=== PATIENT | female | born 1970 | race African-American/Black ===

== ENCOUNTER 2016-04-08 12:52 | Inpatient (IN) | payer MEDICAID ==
[~2016-04-08] VITALS: Ht 162.6 cm; Wt 156.7 kg
[~2016-04-08 12:52] MED LIST: MVITFE PO; VENL-67 PO
[2016-04-08] MEDS ORDERED: ACETAMINOPHEN 325 MG TABLET PO PRN (15:45)
[2016-04-08] MEDS ORDERED: ZOLPIDEM TARTRATE 10 MG TABLET PO PRN (15:45)
[2016-04-08] MEDS ORDERED: QUEtiapine FUMARATE 100 MG TABLET PO PRN (15:45)
[2016-04-08] MEDS ORDERED: MAGNESIUM HYDROXIDE SUSPENSION 30 ML UDCUP PO PRN (15:45)
[2016-04-08] MEDS ORDERED: LORazepam 2 MG TABLET PO PRN (15:45)
[2016-04-08] MEDS ORDERED: PROMETHAZINE HCL 25 MG TABLET PO PRN (15:45)
[2016-04-08] MEDS ORDERED: LOPERAMIDE HCL 2 MG CAPSULE PO PRN (15:45)
[2016-04-08] MEDS ORDERED: GuaiFENesin/D-METHORPHAN [SUGAR-FREE] 200-20MG/10 ML SYRUP UDCUP PO PRN (15:45)
[2016-04-08] MEDS ORDERED: TUBERCULIN, PURIFIED PROTEIN DERIVATIVE 5 TU/0.1 ML SYG ID ONE (15:45)
[2016-04-08] MEDS ORDERED: HydrOXYzine PAMOATE 50 MG CAPSULE PO PRN (15:45)
[2016-04-08] MEDS ORDERED: MAG HYDROX/AL HYDROX/SIMETH ES 30 ML SUSPENSION UDCUP PO PRN (15:45)
[2016-04-08] MEDS ORDERED: CITA10TA68 PO (15:56)
[2016-04-08 16:26] VITALS: BP 133/78
[2016-04-08] MEDS ORDERED: -PHARMACY VACCINE NOTE- MISC ONE ×2 (16:45)
[2016-04-08] MEDS: THIAMINE HCL 100 MG TABLET PO SCH (18:27)
[2016-04-08 18:36] VITALS: BP 126/65
[2016-04-08] MEDS: PRAZOSIN HCL 1 MG CAPSULE PO SCH (20:13)
[2016-04-08 20:14] VITALS: BP 122/85
[2016-04-09 06:02] VITALS: BP 124/80
[2016-04-09 08:19] LABS: BASOPHILS % (AUTO) 0.4 % (0.0-2.0); EOSINOPHILS % (AUTO) 4.4 % (1.0-6.0); HEMATOCRIT 36.3 % (36-46); HEMOGLOBIN 11.6 g/dL (12.0-16.0); LYMPHOCYTES # (AUTO) 2.7 K/uL (1.0-4.8); LYMPHOCYTES % (AUTO) 39.8 % (22.0-44.0); MEAN CORPUSCULAR HEMOGLOBIN 23.9 pg (26.0-34.0); MEAN CORPUSCULAR HGB CONC 31.9 G/dL (31.0-37.0); MEAN CORPUSCULAR VOLUME 75 fL (80-100); MONOCYTES # (AUTO) 0.6 K/uL (0.1-1.0); MONOCYTES % (AUTO) 8.8 % (2.0-9.0); NEUTROPHILS # (AUTO) 3.2 K/uL (1.8-7.7); NEUTROPHILS % (AUTO) 46.6 % (40.0-70.0); PLATELET COUNT (AUTO) 384 K/uL (150-450); RED BLOOD CELL COUNT(AUTO) 4.83 MIL/uL (4.00-5.20); RED CELL DISTRIBUTION WIDTH 16.2 % (11.5-14.5); WHITE BLOOD COUNT (AUTO) 6.8 K/uL (4.5-11.0)
[2016-04-09 08:31] VITALS: BP 118/75
[2016-04-09 08:33] LABS: HEMOGLOBIN A1C 5.8 % (4.5-6.2)
[2016-04-09] MEDS: DULoxetine HCL 20 MG CAPSULE PO SCH (08:35)
[2016-04-09] MEDS: THIAMINE HCL 100 MG TABLET PO SCH ×2 (08:36→16:09)
[2016-04-09] MEDS: GABAPENTIN 300 MG CAPSULE PO SCH ×3 (08:36→16:09)
[2016-04-09] MEDS: MULTIVITAMINS WITH MINERALS, THERAPEUTIC TABLET PO SCH (08:36)
[2016-04-09] MEDS: FOLIC ACID 1 MG TABLET PO SCH (08:36)
[2016-04-09 08:55] LABS: RBC MORPHOLOGY COMMENT ABNORMAL RBC MORPH
[2016-04-09] MEDS ORDERED: FLUoxetine HCL 20 MG CAPSULE PO SCH (09:00)
[2016-04-09 09:08] LABS: ALANINE AMINOTRANSFERASE 15 U/L (12-78); ALBUMIN 2.5 g/dL (3.4-5.0); ANION GAP 6 mmol/L (8-16); ASPARTATE AMINOTRANSFERASE 18 U/L (15-37); BILIRUBIN,TOTAL 0.2 mg/dL (0.1-1.0); CALCIUM, TOTAL 8.7 mg/dL (8.8-10.5); CARBON DIOXIDE 28 mmol/L (22-29); CHLORIDE 105 mmol/L (98-107); CHOL/HDL RATIO 2.9 (3.9-5.7); CREATININE 0.88 mg/dL (0.60-1.30); GLOMERULAR FILTR. RATE CALC > 60 mL/min (>60); POTASSIUM 4.1 mmol/L (3.5-5.1); SODIUM SERUM 139 mmol/L (136-145); THYROID STIMULATING HORMONE 2.36 uIU/mL (0.36-3.74); TOTAL PROTEIN, SERUM 7.2 g/dL (6.4-8.2); UREA NITROGEN, BLOOD 17 mg/dL (7-18)
[2016-04-09 16:25] VITALS: BP 127/87
[2016-04-09] MEDS: ASENAPINE 5 MG SUBLINGUAL TABLET SL SCH (20:16)
[2016-04-09] MEDS: PRAZOSIN HCL 1 MG CAPSULE PO SCH (20:16)
[2016-04-10 04:26] VITALS: BP 131/85
[2016-04-10] MEDS: THIAMINE HCL 100 MG TABLET PO SCH ×2 (08:33→16:43)
[2016-04-10] MEDS: GABAPENTIN 300 MG CAPSULE PO SCH ×3 (08:33→16:43)
[2016-04-10] MEDS: MULTIVITAMINS WITH MINERALS, THERAPEUTIC TABLET PO SCH (08:33)
[2016-04-10] MEDS: FOLIC ACID 1 MG TABLET PO SCH (08:33)
[2016-04-10] MEDS: DULoxetine HCL 20 MG CAPSULE PO SCH (08:33)
[2016-04-10 08:37] VITALS: BP 120/64
[2016-04-10 16:09] VITALS: BP 126/77
[2016-04-10] MEDS: PRAZOSIN HCL 1 MG CAPSULE PO SCH (20:35)
[2016-04-10] MEDS: ASENAPINE 5 MG SUBLINGUAL TABLET SL SCH (20:35)
[2016-04-11 00:20] VITALS: BP 118/72
[2016-04-11 08:29] VITALS: BP 121/78
[2016-04-11] MEDS ORDERED: DULoxetine HCL 30 MG CAPSULE PO SCH (09:00)
[2016-04-11] MEDS ORDERED: DULoxetine HCL 20 MG CAPSULE PO SCH (09:00)
[2016-04-11] MEDS: FOLIC ACID 1 MG TABLET PO SCH (09:34)
[2016-04-11] MEDS: THIAMINE HCL 100 MG TABLET PO SCH ×2 (09:34→16:54)
[2016-04-11] MEDS: GABAPENTIN 300 MG CAPSULE PO SCH ×3 (09:34→16:54)
[2016-04-11] MEDS: MULTIVITAMINS WITH MINERALS, THERAPEUTIC TABLET PO SCH (09:34)
[2016-04-11] MEDS ORDERED: GABA-531 PO (14:53)
[2016-04-11] MEDS ORDERED: ASEN5TAB6 SL (14:53)
[2016-04-11] MEDS ORDERED: DULO20CA30 PO (14:53)
[2016-04-11] MEDS ORDERED: PRAZ1 PO (14:53)
[2016-04-11 21:00] VITALS: BP 131/76
[2016-04-11] MEDS: PRAZOSIN HCL 1 MG CAPSULE PO SCH (21:10)
[2016-04-11] MEDS: ASENAPINE 5 MG SUBLINGUAL TABLET SL SCH (21:10)
[2016-04-12 08:18] VITALS: BP 123/73
[2016-04-12] MEDS ORDERED: DULoxetine HCL 60 MG CAPSULE PO SCH (09:00)
[2016-04-12] MEDS: FOLIC ACID 1 MG TABLET PO SCH (09:13)
[2016-04-12] MEDS: THIAMINE HCL 100 MG TABLET PO SCH (09:13)
[2016-04-12] MEDS: GABAPENTIN 300 MG CAPSULE PO SCH ×2 (09:13→12:52)
[2016-04-12] MEDS: MULTIVITAMINS WITH MINERALS, THERAPEUTIC TABLET PO SCH (09:13)
[2016-04-12] MEDS ORDERED: DULO60CA44 PO (10:38)
[2016-04-12] MEDS ORDERED: GABA-531 PO (10:38)
[2016-04-12] MEDS ORDERED: ASEN5TAB6 SL (10:38)
[2016-04-12] MEDS ORDERED: PRAZ1 PO (10:38)
== END 2016-04-12 14:18 | disposition home or self-care (01) | DRG 751 ==
LOC: B2S 16:06
PROVIDERS: ADMIT Psychiatry & Neurology Psychiatry; ATTEND Psychiatry & Neurology Psychiatry
DX: F33.9 Major depressive disorder, recurrent, unspecified (principal); R45.851 Suicidal ideations; Z68.43 Body mass index [BMI] 50.0-59.9, adult; I10 Essential (primary) hypertension; E66.01 Morbid (severe) obesity due to excess calories; F43.10 Post-traumatic stress disorder, unspecified; M79.7 Fibromyalgia; G89.4 Chronic pain syndrome; M19.90 Unspecified osteoarthritis, unspecified site; D64.9 Anemia, unspecified; Z59.0 Homelessness; Z79.899 Other long term (current) drug therapy; Z91.19 Patient's noncompliance with other medical treatment and regimen; Z87.898 Personal history of other specified conditions
CPT/HCPCS: 83036; 84439; 84443; 86592; 93005

== ENCOUNTER 2016-05-27 22:36 | Inpatient (IN) | payer MEDICAID, OTHER ==
[~2016-05-27] VITALS: Ht 175.3 cm; Wt 154.4 kg
[~2016-05-27 22:36] MED LIST changes: +ASEN5TAB6 SL; +DULO20CA30 PO; +GABA-531 PO; -MVITFE PO; +PRAZ1 PO; -VENL-67 PO
[2016-05-27] MEDS ORDERED: CHARCOAL/SORBITOL 50 GM/240 ML SUSPENSION PO ONE (23:00)
[2016-05-27 23:10] LABS: BASOPHILS # (AUTO) 0.04 K/uL (0.00-0.20); BASOPHILS % (AUTO) 0.5 % (0.0-2.0); EOSINOPHILS # (AUTO) 0.37 K/uL (0.00-0.70); EOSINOPHILS % (AUTO) 4.84 % (1.0-6.0); HEMATOCRIT 34.4 % (36-46); HEMOGLOBIN 11.1 g/dL (12.0-16.0); LYMPHOCYTES # (AUTO) 2.6 K/uL (1.0-4.8); LYMPHOCYTES % (AUTO) 33.1 % (22.0-44.0); MEAN CORPUSCULAR HEMOGLOBIN 23.4 pg (26.0-34.0); MEAN CORPUSCULAR HGB CONC 32.2 G/dL (31.0-37.0); MEAN CORPUSCULAR VOLUME 73 fL (80-100); MONOCYTES # (AUTO) 0.6 K/uL (0.1-1.0); MONOCYTES % (AUTO) 7.8 % (2.0-9.0); NEUTROPHILS # (AUTO) 4.2 K/uL (1.8-7.7); NEUTROPHILS % (AUTO) 53.7 % (40.0-70.0); PLATELET COUNT (AUTO) 374 K/uL (150-450); RED BLOOD CELL COUNT(AUTO) 4.73 MIL/uL (4.00-5.20); RED CELL DISTRIBUTION WIDTH 18.2 % (11.5-14.5); WHITE BLOOD COUNT (AUTO) 7.7 K/uL (4.5-11.0)
[2016-05-27 23:17] LABS: ANION GAP 9 mmol/L (8-16); CARBON DIOXIDE 29 mmol/L (22-29); CHLORIDE 104 mmol/L (98-107); GLOMERULAR FILTR. RATE CALC > 60 mL/min (>60); POTASSIUM 3.6 mmol/L (3.5-5.1); SODIUM SERUM 142 mmol/L (136-145); UREA NITROGEN, BLOOD 12 mg/dL (7-18)
[2016-05-27 23:18] LABS: RBC MORPHOLOGY COMMENT ABNORMAL RBC MORPH
[2016-05-27 23:22] LABS: ACETAMINOPHEN 22 mcg/mL (10-30); ALANINE AMINOTRANSFERASE 15 U/L (12-78); ASPARTATE AMINOTRANSFERASE 16 U/L (15-37); BILIRUBIN,TOTAL 0.2 mg/dL (0.1-1.0); TOTAL PROTEIN, SERUM 7.7 g/dL (6.4-8.2)
[2016-05-27 23:41] LABS: SALICYLATE 2.9 mg/dL (2.8-20.0)
[2016-05-27] MEDS ORDERED: PERMETHRIN 5% 60 GM CREAM TP ONE (23:45)
[2016-05-28] MEDS ORDERED: ZOLPIDEM TARTRATE 10 MG TABLET PO PRN (00:30)
[2016-05-28] MEDS ORDERED: LORazepam 2 MG TABLET PO PRN (00:30)
[2016-05-28] MEDS ORDERED: OLANZapine 5 MG RAPDIS TABLET PO PRN (00:30)
[2016-05-28 01:28] LABS: APPEARANCE,URINE CLOUDY (CLEAR); GLUCOSE, URINE (UA) NEGATIVE (NEGATIVE); KETONES,URINE NEGATIVE (NEGATIVE); LEUKOCYTE ESTERASE ,URINE NEGATIVE (NEGATIVE); OCCULT BLOOD,URINE NEGATIVE (NEGATIVE); PH,URINE 5.5 (5.0-8.0); PROTEIN,URINE TRACE (NEGATIVE)
[2016-05-28 01:29] LABS: ADD UA MICROSCOPIC NO
[2016-05-28 03:28] VITALS: BP 143/81
[2016-05-28] MEDS ORDERED: -PHARMACY VACCINE NOTE- MISC ONE ×2 (04:00)
[2016-05-28 08:30] VITALS: BP 127/75
[2016-05-28] MEDS ORDERED: MAGNESIUM HYDROXIDE SUSPENSION 30 ML UDCUP PO PRN (11:45)
[2016-05-28] MEDS ORDERED: HydrOXYzine PAMOATE 50 MG CAPSULE PO PRN (11:45)
[2016-05-28] MEDS ORDERED: TUBERCULIN, PURIFIED PROTEIN DERIVATIVE 5 TU/0.1 ML SYG ID ONE (11:45)
[2016-05-28] MEDS ORDERED: MAG HYDROX/AL HYDROX/SIMETH ES 30 ML SUSPENSION UDCUP PO PRN (11:45)
[2016-05-28] MEDS ORDERED: GuaiFENesin/D-METHORPHAN [SUGAR-FREE] 200-20MG/10 ML SYRUP UDCUP PO PRN (11:45)
[2016-05-28] MEDS ORDERED: ACETAMINOPHEN 325 MG TABLET PO PRN (11:45)
[2016-05-28] MEDS ORDERED: PROMETHAZINE HCL 25 MG TABLET PO PRN (11:45)
[2016-05-28] MEDS ORDERED: LOPERAMIDE HCL 2 MG CAPSULE PO PRN (11:45)
[2016-05-28] MEDS: GABAPENTIN 300 MG CAPSULE PO SCH ×2 (13:30→16:17)
[2016-05-28] MEDS: THIAMINE HCL 100 MG TABLET PO SCH (16:17)
[2016-05-28 19:48] VITALS: BP 107/74
[2016-05-28] MEDS: PRAZOSIN HCL 2 MG CAPSULE PO SCH (20:36)
[2016-05-28] MEDS: ASENAPINE 5 MG SUBLINGUAL TABLET SL SCH (20:36)
[2016-05-28 20:48] VITALS: BP 128/86
[2016-05-29 08:30] VITALS: BP 165/102
[2016-05-29] MEDS ORDERED: DULoxetine HCL 20 MG CAPSULE PO SCH (09:00)
[2016-05-29] MEDS: THIAMINE HCL 100 MG TABLET PO SCH ×2 (09:12→17:45)
[2016-05-29] MEDS: FOLIC ACID 1 MG TABLET PO SCH (09:12)
[2016-05-29] MEDS: GABAPENTIN 300 MG CAPSULE PO SCH ×3 (09:12→17:45)
[2016-05-29] MEDS: MULTIVITAMINS WITH MINERALS, THERAPEUTIC TABLET PO SCH (09:12)
[2016-05-29] MEDS: DULoxetine HCL 30 MG CAPSULE PO SCH (09:12)
[2016-05-29] MEDS ORDERED: POTASSIUM CHLORIDE 20 MEQ ER TABLET PO ONE (19:00)
[2016-05-29 19:01] VITALS: BP 121/76
[2016-05-29] MEDS: PRAZOSIN HCL 2 MG CAPSULE PO SCH (21:34)
[2016-05-29] MEDS: ASENAPINE 5 MG SUBLINGUAL TABLET SL SCH (21:34)
[2016-05-30 08:00] VITALS: BP 128/88
[2016-05-30] MEDS: THIAMINE HCL 100 MG TABLET PO SCH ×2 (09:59→17:20)
[2016-05-30] MEDS: GABAPENTIN 300 MG CAPSULE PO SCH (09:59)
[2016-05-30] MEDS: FOLIC ACID 1 MG TABLET PO SCH (09:59)
[2016-05-30] MEDS: DULoxetine HCL 30 MG CAPSULE PO SCH (09:59)
[2016-05-30] MEDS: HYDROCHLOROTHIAZIDE 25 MG TABLET PO SCH (09:59)
[2016-05-30] MEDS: MULTIVITAMINS WITH MINERALS, THERAPEUTIC TABLET PO SCH (10:00)
[2016-05-30] MEDS: GABAPENTIN 400 MG CAPSULE PO SCH ×2 (13:48→17:20)
[2016-05-30 17:15] VITALS: BP 136/79
[2016-05-30] MEDS: ASENAPINE 5 MG SUBLINGUAL TABLET SL SCH (20:31)
[2016-05-30] MEDS: PRAZOSIN HCL 1 MG CAPSULE PO SCH (20:33)
[2016-05-31 08:00] VITALS: BP 135/63
[2016-05-31] MEDS ORDERED: DULoxetine HCL 20 MG CAPSULE PO SCH (09:00)
[2016-05-31] MEDS: MULTIVITAMINS WITH MINERALS, THERAPEUTIC TABLET PO SCH (10:11)
[2016-05-31] MEDS: HYDROCHLOROTHIAZIDE 25 MG TABLET PO SCH (10:11)
[2016-05-31] MEDS: THIAMINE HCL 100 MG TABLET PO SCH ×2 (10:11→17:13)
[2016-05-31] MEDS: GABAPENTIN 400 MG CAPSULE PO SCH ×3 (10:11→17:13)
[2016-05-31] MEDS: FOLIC ACID 1 MG TABLET PO SCH (10:11)
[2016-05-31] MEDS ORDERED: PRAZ2 PO (15:49)
[2016-05-31] MEDS ORDERED: DULO60CA44 PO (15:49)
[2016-05-31 19:14] VITALS: BP 153/95
[2016-05-31] MEDS: PRAZOSIN HCL 1 MG CAPSULE PO SCH (20:55)
[2016-05-31] MEDS: ASENAPINE 5 MG SUBLINGUAL TABLET SL SCH (20:55)
[2016-06-01 08:00] VITALS: BP 140/75
[2016-06-01] MEDS: MULTIVITAMINS WITH MINERALS, THERAPEUTIC TABLET PO SCH (08:19)
[2016-06-01] MEDS: DULoxetine HCL 60 MG CAPSULE PO SCH (08:19)
[2016-06-01] MEDS: GABAPENTIN 400 MG CAPSULE PO SCH ×3 (08:19→17:56)
[2016-06-01] MEDS: FOLIC ACID 1 MG TABLET PO SCH (08:19)
[2016-06-01] MEDS: HYDROCHLOROTHIAZIDE 25 MG TABLET PO SCH (08:20)
[2016-06-01] MEDS: THIAMINE HCL 100 MG TABLET PO SCH ×2 (08:20→17:56)
[2016-06-01 17:05] VITALS: BP 147/97
[2016-06-01] MEDS: PRAZOSIN HCL 1 MG CAPSULE PO SCH (20:44)
[2016-06-01] MEDS: ASENAPINE 5 MG SUBLINGUAL TABLET SL SCH (20:45)
[2016-06-02 08:00] VITALS: BP 118/79
[2016-06-02] MEDS: HYDROCHLOROTHIAZIDE 25 MG TABLET PO SCH (08:31)
[2016-06-02] MEDS: GABAPENTIN 400 MG CAPSULE PO SCH ×3 (08:32→16:49)
[2016-06-02] MEDS: FOLIC ACID 1 MG TABLET PO SCH (08:32)
[2016-06-02] MEDS: MULTIVITAMINS WITH MINERALS, THERAPEUTIC TABLET PO SCH (08:32)
[2016-06-02] MEDS: DULoxetine HCL 60 MG CAPSULE PO SCH (08:32)
[2016-06-02] MEDS: THIAMINE HCL 100 MG TABLET PO SCH ×2 (08:32→16:49)
[2016-06-02 20:21] VITALS: BP 130/86
[2016-06-02] MEDS: ASENAPINE 5 MG SUBLINGUAL TABLET SL SCH (21:19)
[2016-06-02] MEDS: PRAZOSIN HCL 1 MG CAPSULE PO SCH (21:19)
[2016-06-03 09:00] VITALS: BP 110/63
[2016-06-03] MEDS: FOLIC ACID 1 MG TABLET PO SCH (09:28)
[2016-06-03] MEDS: HYDROCHLOROTHIAZIDE 25 MG TABLET PO SCH (09:28)
[2016-06-03] MEDS: MULTIVITAMINS WITH MINERALS, THERAPEUTIC TABLET PO SCH (09:28)
[2016-06-03] MEDS: GABAPENTIN 400 MG CAPSULE PO SCH ×3 (09:28→17:34)
[2016-06-03] MEDS: THIAMINE HCL 100 MG TABLET PO SCH ×2 (09:28→17:34)
[2016-06-03] MEDS: DULoxetine HCL 60 MG CAPSULE PO SCH (09:29)
[2016-06-03] MEDS ORDERED: DULO60CA44 PO (10:39)
[2016-06-03] MEDS ORDERED: GABA-533 PO (10:39)
[2016-06-03] MEDS ORDERED: ASEN5TAB6 SL (10:39)
[2016-06-03] MEDS ORDERED: PRAZ1 PO (10:39)
[2016-06-03] MEDS ORDERED: HYDR25TA PO (12:37)
[2016-06-03] MEDS: ASENAPINE 5 MG SUBLINGUAL TABLET SL SCH (17:33)
[2016-06-03] MEDS: PRAZOSIN HCL 1 MG CAPSULE PO SCH (21:39)
[2016-06-04 08:30] VITALS: BP 128/65
[2016-06-04] MEDS: MULTIVITAMINS WITH MINERALS, THERAPEUTIC TABLET PO SCH (10:21)
[2016-06-04] MEDS: DULoxetine HCL 60 MG CAPSULE PO SCH (10:21)
[2016-06-04] MEDS: GABAPENTIN 400 MG CAPSULE PO SCH ×2 (10:21→14:37)
[2016-06-04] MEDS: FOLIC ACID 1 MG TABLET PO SCH (10:21)
[2016-06-04] MEDS: ASENAPINE 5 MG SUBLINGUAL TABLET SL SCH (10:22)
[2016-06-04] MEDS: THIAMINE HCL 100 MG TABLET PO SCH (10:22)
[2016-06-04] MEDS: HYDROCHLOROTHIAZIDE 25 MG TABLET PO SCH (10:22)
== END 2016-06-04 16:15 | disposition home or self-care (01) | DRG 754 ==
LOC: EMS 22:41 → 3EI 05-28 02:00
PROVIDERS: ADMIT Psychiatry & Neurology Psychiatry; ATTEND Psychiatry & Neurology Psychiatry
DX: F32.9 Major depressive disorder, single episode, unspecified (principal); G62.9 Polyneuropathy, unspecified; I10 Essential (primary) hypertension; Z68.43 Body mass index [BMI] 50.0-59.9, adult; B85.2 Pediculosis, unspecified; D64.9 Anemia, unspecified; B86 Scabies; F43.10 Post-traumatic stress disorder, unspecified; E66.3 Overweight; F12.10 Cannabis abuse, uncomplicated; G89.4 Chronic pain syndrome; M19.90 Unspecified osteoarthritis, unspecified site; M79.7 Fibromyalgia; T40.2X2A Poisoning by other opioids, intentional self-harm, initial encounter; T39.1X1A Poisoning by 4-Aminophenol derivatives, accidental (unintentional), initial encounter; Z91.19 Patient's noncompliance with other medical treatment and regimen; Y92.89 Other specified places as the place of occurrence of the external cause; Z59.0 Homelessness; Z79.899 Other long term (current) drug therapy
CPT/HCPCS: 93005; 99285; G0480; G0481